=== PATIENT | female | born 1985 ===

== ENCOUNTER → 2017-04-12 | Outpatient (CLI) | payer OTHER ==
--- NOTE | 2017-04-12 15:13 | WOMENS IMAGING REPORT ---
EXAM DESCRIPTION: TRANSVAGINAL ULTRASOUND COMPLETED DATE/TIME: 04/12/2017 2:23 pm REASON FOR STUDY: N64.9 N94.9 [facility] W FEMALE GENITAL ORGANS AND MENSTRUAL COMPARISON: None. TECHNIQUE: Dynamic and static grayscale images acquired of the pelvis via transvaginal approach and recorded on PACS. Additional selected color Doppler and spectral images recorded. LIMITATIONS: None. FINDINGS: UTERUS: Contour normal. No mass. ENDOMETRIAL STRIPE: Focal endometrial thickening at the fundus of the uterus, measuring 0.7 x 1.3 cm. CERVIX: Nabothian cysts. RIGHT OVARY: 3.5 x 3.8 cm cyst. RIGHT OVARY DOPPLER: Normal arterial vascular flow without evidence for torsion. LEFT OVARY: 1.8 x 1.9 cm cyst. LEFT OVARY DOPPLER: Normal arterial vascular flow without evidence for torsion. FREE FLUID: None noted. OTHER: No other significant finding. MEASUREMENTS: UTERUS: 3.9 x 5.6 x 8.9 cm. ENDOMETRIAL STRIPE: 4 mm. RIGHT OVARY: 3.9 x 3.9 x 4.3 cm. LEFT OVARY: 2.2 x 2.8 x 3.4 cm. IMPRESSION: 1. FOCAL ENDOMETRIAL THICKENING AT THE FUNDUS OF THE UTERUS. THIS IS PROBABLY DUE TO A SOFT TISSUE M ASS, PROBABLY AN ENDOMETRIAL POLYP ALTHOUGH OTHER ENDOMETRIAL MASSES INCLUDING MALIGNANCY CANNOT BE E XCLUDED. 2. BILATERAL OVARIAN CYSTS. TECHNICAL DOCUMENTATION: JOB ID: [id number]- All Rights Reserved
== END ==
LOC: WI 13:37
PROVIDERS: ATTEND Family Medicine
DX: N94.9 Unspecified condition associated with female genital organs and menstrual cycle (principal); N83.202 Unspecified ovarian cyst, left side; N83.201 Unspecified ovarian cyst, right side
CPT/HCPCS: 76830